=== PATIENT | female | born 1970 | race Caucasian/White ===

== ENCOUNTER 2020-02-16 06:17 | Emergency (ER) | payer SELFPAY ==
--- NOTE | 2020-02-16 09:04 | ER Document Report ---
ED General - General Chief Complaint: Neck Swelling Stated Complaint: RIGHT SIDE FACE SWOLLEN Time Seen by Provider: 02/16/20 09:04 Primary Care Provider: [facility] [Provider Group] - Follow up in 1 week CLIFFORD WICK DDS [NO LOCAL MD] - Follow up in 1 week - HPI Notes: 50-year-old female to the emergency department with complaints of right-sided facial swelling that has gotten progressively worse in the past 2 days. She states that it feels like someone socked her in the jaw. Denies any fevers or chills. She states that this morning she awoke and had some difficulty opening her mouth. She states that she went to the dentist last about 6 months ago. She states that the tooth does not really hurt. Denies any voice changes, fevers, chills, shortness of breath, chest pain, nausea, vomiting, diarrhea. She is allergic to penicillins. Mom did give patient a Vicodin last night for pain but patient reports it did not help. - Related Data Allergies/Adverse Reactions: ampicillin Allergy (Verified 02/16/20 07:11) Penicillins Allergy (Verified 02/16/20 07:11) Home Medications: lasix, singuliar, allery med, symbicort inh, albuterol inhaler. Past Medical History - General Information source: Patient - Social History Smoking Status: Never Smoker Frequency of alcohol use: None Drug Abuse: None Family History: Reviewed & Not Pertinent Review of Systems - Review of Systems Constitutional: denies: Chills, Fever EENT: See HPI, Mouth pain, Dental problem. denies: Nose pain, Nose congestion, Nose discharge, Difficulty swallowing Cardiovascular: denies: Chest pain, Palpitations, Syncope, Dizziness, Lightheaded Respiratory: denies: Cough, Short of breath Gastrointestinal: denies: Abdominal pain, Diarrhea, Nausea, Vomiting Genitourinary: No symptoms reported Musculoskeletal: No symptoms reported Skin: No symptoms reported Hematologic/Lymphatic: No symptoms reported Neurological/Psychological: No symptoms reported -: Yes All other systems reviewed and negative Physical Exam - Vital signs Vitals: Temp Pulse Resp BP Pulse Ox 98.1 F 99 18 121/89 H 98 02/16/20 07:10 02/16/20 07:10 02/16/20 07:10 02/16/20 07:10 02/16/20 07:10 - Notes Notes: PHYSICAL EXAMINATION: GENERAL: Well-appearing, well-nourished and in no acute distress. HEAD: Atraumatic, normocephalic. EYES: Pupils equal round and reactive to light, extraocular movements intact, sclera anicteric, conjunctiva are normal. ENT: nares patent, oropharynx clear without exudates. Moist mucous membranes. There is TTP over right lower jaw with noted indurated likely dental abscess. Dental caries throughout. no Chirs's angina, no drooling, no trismus. there is notes facial swelling with mild erythema to the right side of the face. TMs clear bilaterally. NECK: Normal range of motion, supple without lymphadenopathy LUNGS: Breath sounds clear to auscultation bilaterally and equal. No wheezes rales or rhonchi. HEART: Regular rate and rhythm without murmurs ABDOMEN: morbidly obese, Soft, nontender, normoactive bowel sounds. No guarding, no rebound. No masses appreciated. EXTREMITIES: Normal range of motion, no pitting or edema. No cyanosis. NEUROLOGICAL: No focal neurological deficits. Moves all extremities spontaneously and on command. PSYCH: Normal mood, normal affect. SKIN: Warm, Dry, normal turgor, no rashes or lesions noted. Course - Re-evaluation Re-evalutation: Impression: Dental abscess, facial swelling. Noted CT reading I offered to perform I&D on the dental abscess with the plan. We will plan for discharge home - Vital Signs Vital signs: Temp Pulse Resp BP Pulse Ox 97.5 F 89 18 129/84 H 100 02/16/20 12:30 02/16/20 12:30 02/16/20 12:30 02/16/20 12:30 02/16/20 12:30 - Laboratory Results Result Diagrams: 02/16/20 10:20 02/16/20 10:20 Laboratory Results Interpreted: 02/16/20 10:20 WBC 12.7 H Lymph % (Auto) 12.2 L Absolute Neuts (auto) 10.2 H Seg Neutrophils % 80.3 H Critical Laboratory Results Reviewed: No Critical Results - Radiology Results Critical Radiology Results Reviewed: No Critical Results Discharge - Discharge Clinical Impression: Dental abscess, Facial swelling Condition: Stable Disposition: HOME, SELF-CARE Instructions: Dental Infection or Abscess ([facility]) Additional Instructions: Please follow-up with your dentist without fail. Return if you have worsening pain, swelling, fevers, shortness of breath. Please complete all antibiotics without fail. Prescriptions: Clindamycin HCl 300 mg PO QID #40 capsule Prednisone [Deltasone 20 mg Tablet] 40 mg PO DAILY #6 tablet Ibuprofen [Motrin 800 mg Tablet] 800 mg PO Q8H PRN #30 tab PRN Reason: Referrals: CLIFFORD WICK DDS [NO LOCAL MD] - Follow up in 1 week [facility] [Provider Group] - Follow up in 1 week
[2020-02-16] MEDS ORDERED: CLINDAMYCIN 600 MG/D5W RTU 600 MG/50 ML RTUPB IV ONE (09:13)
[2020-02-16] MEDS ORDERED: DEXAMETHASONE SOD PHOS INJ 10 MG/1 ML VIAL IV ONE (09:13)
[2020-02-16] MEDS ORDERED: KETOROLAC TROMETHAMINE INJ/PF 30 MG/1 ML SDV IV ONE (09:13)
[2020-02-16 10:55] LABS: ABSOLUTE BASOPHILS # (AUTO) 0.1 10^3/uL (0.0-0.2); ABSOLUTE EOSINOPHILS # (AUTO) 0.1 10^3/uL (0.0-0.6); ABSOLUTE LYMPHOCYTES (AUTO) 1.6 10^3/uL (0.5-4.7); ABSOLUTE MONOCYTES (AUTO) 0.8 10^3/uL (0.1-1.4); ABSOLUTE NEUT (AUTO) 10.2 10^3/uL (1.7-8.2); BASOPHILS % (AUTO) 0.7 % (0-2); EOSINOPHILS % (AUTO) 0.8 % (0-6); HEMATOCRIT 39.1 % (36.0-47.0); LYMPHOCYTES % (AUTO) 12.2 % (13-45); MEAN CORPUSCULAR HGB CONC 33.2 g/dL (32.0-36.0); MEAN CORPUSCULAR VOLUME 87 fl (80-97); PLATELET COUNT 282 10^3/uL (150-450); RED BLOOD COUNT 4.48 10^6/uL (3.72-5.28); RED CELL DISTRIBUTION WIDTH 13.3 % (11.5-14.0); SEGMENTED NEUTROPHILS % (AUTO) 80.3 % (42-78); TOTAL CELLS COUNTED % (AUTO) 100 %; WHITE BLOOD COUNT 12.7 10^3/uL (4.0-10.5)
[2020-02-16 11:03] LABS: ANION GAP 6 (5-19); BLOOD UREA NITROGEN 20 mg/dL (7-20); CALCIUM 8.9 mg/dL (8.4-10.2); CARBON DIOXIDE 29 mmol/L (22-30); CHLORIDE 104 mmol/L (98-107); GLUCOSE 101 mg/dL (75-110); POTASSIUM 4.3 mmol/L (3.6-5.0)
--- NOTE | 2020-02-16 12:17 | RADIOLOGY REPORT (SQ) ---
EXAM DESCRIPTION: CT FACIAL AREA WITH IMAGES COMPLETED DATE/TIME: 02/16/2020 11:32 am REASON FOR STUDY: facial swelling COMPARISON: None. TECHNIQUE: Post contrast images through the facial bones and orbits windowed for bone and soft tissu e. Additional coronal and sagittal reconstructed images reviewed. All images stored on PACS. All CT scanners at this facility use dose modulation, iterative reconstruction, and/or weight based d osing when appropriate to reduce radiation dose to as low as reasonably achievable (ALARA). [facility]: Dose Right [facility]: CareDose [facility]: Dose Right [facility]: Teradose 4D [facility]: Identiv CONTRAST TYPE AND DOSE: contrast/concentration: Isovue 350.00 mmol/ml; Total Contrast Delivered: 50. 0 ml; Total Saline Delivered: 45.0 ml RENAL FUNCTION: BUN 20 creatinine 0.76 RADIATION DOSE: CT Rad equipment meets quality standard of care and radiation dose reduction techniq ues were employed. CTDIvol: 30.4 mGy. DLP: 707 mGy-cm. . LIMITATIONS: None. FINDINGS: FACIAL BONES: No fracture. There appears to be a dental abscess in the right side of the mandible. See image 23 series 4. ORBITS: Intact. No fracture. Symmetric intact globes and retroorbital soft tissues. PARANASAL SINUSES: Clear. No significant mucosal thickening, mass or fluid. No nasal polyps. Maxilla ry sinus outlets are patent. SOFT TISSUES: Soft tissue swelling along the right side 8 mandible. No abscess is seen in the soft t issues. INFERIOR BRAIN: Limited view. No acute findings. OTHER: No other significant finding. IMPRESSION: Soft tissue swelling along the right side of mandible without a soft tissue abscess. Th ere appears to be an adjacent dental abscess. TECHNICAL DOCUMENTATION: JOB ID: [id number] Quality ID # [id number]: Final reports with documentation of one or more dose reduction techniques (e.g., Au tomated exposure control, adjustment of the mA and/or kV according to patient size, use of iterative reconstruction technique) 2010 [employer]- All Rights Reserved Reading location - IP/workstation name: [id number]
[2020-02-16 12:30] VITALS: BP 129/84
[2020-02-16] MEDS ORDERED: HYDROCODONE/ACETAMINOPHEN 5-325 MG (6 TAB/ER DISP) PO PRN (13:05)
== END 2020-02-16 13:30 | disposition home or self-care (01) ==
LOC: ER 06:17
DX: K04.7 Periapical abscess without sinus (principal); R22.1 Localized swelling, mass and lump, neck; Z88.0 Allergy status to penicillin
CPT/HCPCS: 99285; 96375; 96365; 96368; 36415; 85025; 80048; 70487; J1885; J1100